=== PATIENT | male | born 1970 ===

== ENCOUNTER 2020-05-31 17:49 | Emergency (ER) | payer SELFPAY ==
[~2020-05-31] VITALS: Ht 188 cm; Wt 69.4 kg
--- NOTE | 2020-05-31 17:50 | NUR ---
[id number], passed out in the streets w/ empty vodka bottle. 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 responds to painful stimuli, to ER bed 14, hooked to monitor, blanket provided, awaiting MD velasco
--- NOTE | 2020-05-31 18:09 | NUR ---
cathyp pa at bedside for eval.
[2020-05-31] MEDS: IV NS 0.9% 1,000 ML BAG IV ONE ×2 (18:21→19:39)
--- NOTE | 2020-05-31 19:14 | NUR ---
PT RESPONSIVE TO MECHANICAL STIMULI. RESPIRATIONS EVEN AND UNLABORED ON RA W/ NAD NOTED. PT CONNECTED TO THE HANDLE FINISHER AND POX.
--- NOTE | 2020-05-31 19:34 | NUR ---
pt on monitor w/ noted hypotension. zemelanie rodarte made aware. no new order at this time. report given to anjelica mason for sonal.
[2020-05-31 19:44] LABS: BASOPHILS % (AUTO) 0.7 % (0.0-2.0); EOSINOPHILS % (AUTO) 1.7 % (0.0-6.0); HEMATOCRIT 38 % (39-51); LYMPHOCYTES # (AUTO) 2.1 /CMM (0.8-4.8); LYMPHOCYTES % (AUTO) 42.3 % (20.0-44.0); MEAN CORPUSCULAR HGB CONC 32 g/dl (31.0-36.0); MEAN CORPUSCULAR VOLUME 87 fL (80-96); MONOCYTES # (AUTO) 0.4 /CMM (0.1-1.30); MONOCYTES % (AUTO) 7.7 % (2.0-12.0); NEUTROPHILS # (AUTO) 2.3 /CMM (1.8-8.9); NEUTROPHILS % (AUTO) 47.6 % (43.0-81.0); PLATELET COUNT (AUTO) 279 /CMM (150-450); RED BLOOD CELL COUNT(AUTO) 4.31 MIL/uL (4.5-6.0); WHITE BLOOD COUNT (AUTO) 4.9 K/uL (4.3-11.0)
[2020-05-31 19:55] LABS: CALCIUM, SERUM 7.9 mg/dL (8.5-10.1); CREATININE 1.4 mg/dL (0.6-1.3); POTASSIUM 3.6 mmol/L (3.5-5.1)
[2020-05-31 20:00] LABS: ALBUMIN 3.2 g/dL (3.4-5.0); BILIRUBIN,DIRECT 0.1 mg/dL (0.0-0.2); BILIRUBIN,TOTAL 0.2 mg/dL (0.2-1.0); TOTAL PROTEIN, SERUM 6.7 g/dL (6.4-8.2)
--- NOTE | 2020-05-31 20:00 | NUR ---
PT STATES " I FEEL BETTER AND WANT TO LEAVE". PT AMBULATORY W/ STEADY GAIT. PA ZEP MADE AWARE.
--- NOTE | 2020-05-31 20:10 | NUR ---
Patient discharged to home in stable condition. Written and verbal after care instructions given. Patient verbalizes understanding of instruction. Pt refused to sign aci. Pt ambulatory w/ steady gait.
[2020-05-31 20:29] VITALS: BP 100/64
== END 2020-05-31 20:29 | disposition home or self-care (01) ==
LOC: ER 17:52
DX: F10.129 Alcohol abuse with intoxication, unspecified (principal); Y90.6 Blood alcohol level of 120-199 mg/100 ml; Z59.0 Homelessness
CPT/HCPCS: 36415; 80048; 80076; 80299; 80320; 85025; 96360; 96361; 99285; J7030 ×2; G0480